=== PATIENT | male | born 1990 | race African-American/Black ===

== ENCOUNTER 2022-05-10 15:27 | Emergency (ER) | payer MEDICAID, OTHER ==
[~2022-05-10] VITALS: Ht 188 cm; Wt 108.9 kg
--- NOTE | 2022-05-10 15:30 | NUR ---
PT NUMBER [phone]
[2022-05-10 15:39] VITALS: BP 171/89
[2022-05-10] MEDS ORDERED: HYDR30CR79 RC (16:14)
== END 2022-05-10 17:31 | disposition home or self-care (01) ==
LOC: ER 15:33
DX: R21 Rash and other nonspecific skin eruption (principal); K62.89 Other specified diseases of anus and rectum; F17.200 Nicotine dependence, unspecified, uncomplicated